=== PATIENT | male | born 1990 | race Caucasian/White ===

== ENCOUNTER 2021-05-19 09:44 | Inpatient (IN) | payer MEDICAID ==
[~2021-05-19] VITALS: Ht 180.3 cm; Wt 85.5 kg
[2021-05-19 10:52] LABS: COVID AG,FIA SOURCE NASAL SWAB
[2021-05-19 10:53] LABS: BASOPHILS % (AUTO) 1.3 % (0.0-2.0); EOSINOPHILS % (AUTO) 0.5 % (1.0-6.0); HEMATOCRIT 38.9 % (41-53); LYMPHOCYTES % (AUTO) 20.3 % (22.0-44.0); MEAN CORPUSCULAR HEMOGLOBIN 27.2 pg (26.0-34.0); MEAN CORPUSCULAR HGB CONC 33.5 G/dL (31.0-37.0); MEAN CORPUSCULAR VOLUME 81 fL (80-100); MONOCYTES # (AUTO) 0.9 K/uL (0.1-1.0); MONOCYTES % (AUTO) 9.5 % (2.0-9.0); NEUTROPHILS # (AUTO) 6.7 K/uL (1.8-7.7); NEUTROPHILS % (AUTO) 68.4 % (40.0-70.0); PLATELET COUNT (AUTO) 320 K/uL (150-450); RED BLOOD CELL COUNT(AUTO) 4.77 MIL/uL (4.50-5.90); RED CELL DISTRIBUTION WIDTH 13.4 % (11.5-14.5)
[2021-05-19 11:01] LABS: AMPHET/METH SCREEN,URINE POSITIVE (NEGATIVE); BARBITURATE SCREEN, URINE NEGATIVE (NEGATIVE); BENZODIAZEPINES SCREEN,URINE NEGATIVE (NEGATIVE); CANNABINOID SCREEN,URINE NEGATIVE (NEGATIVE); COCAINE SCREEN,URINE NEGATIVE (NEGATIVE); METHADONE SCREEN, URINE NEGATIVE (NEGATIVE); OPIATE SCREEN,URINE NEGATIVE (NEGATIVE); PHENCYCLIDINE SCREEN,URINE NEGATIVE (NEGATIVE)
[2021-05-19 11:03] LABS: ANION GAP 14 mmol/L (8-16); CALCIUM, TOTAL 9.6 mg/dL (8.8-10.5); CARBON DIOXIDE 23 mmol/L (22-29); CHLORIDE 101 mmol/L (98-107); CREATININE 1.21 mg/dL (0.60-1.30); GLOMERULAR FILTR. RATE CALC > 60 mL/min (>60); GLUCOSE,RANDOM 97 mg/dL (70-110); POTASSIUM 3.7 mmol/L (3.5-5.1); SODIUM SERUM 138 mmol/L (136-145); UREA NITROGEN, BLOOD 21 mg/dL (7-18)
[2021-05-19 11:09] LABS: ALANINE AMINOTRANSFERASE 40 U/L (12-78); ALBUMIN 4.6 g/dL (3.4-5.0); ALKALINE PHOSPHATASE 60 U/L (46-116); ASPARTATE AMINOTRANSFERASE 51 U/L (15-37); TOTAL PROTEIN, SERUM 8.7 g/dL (6.4-8.2)
[2021-05-19] MEDS ORDERED: LORazepam 1 MG TABLET PO ONE (13:15)
[2021-05-19] MEDS ORDERED: OLANZapine 5 MG TABLET PO ONE (15:15)
[2021-05-19] MEDS ORDERED: ZOLPIDEM TARTRATE 10 MG TABLET PO PRN (17:15)
[2021-05-19] MEDS ORDERED: HALOPERIDOL 5 MG TABLET PO PRN (17:15)
[2021-05-19] MEDS ORDERED: LORazepam 2 MG TABLET PO PRN (17:15)
[2021-05-19 19:53] VITALS: BP 121/54
[2021-05-19 20:37] VITALS: BP 121/54
[2021-05-19] MEDS ORDERED: PNEUMOCOCCAL VACCINE POLYVALENT 0.5 ML VIAL [PPSV23] IM. ONE (20:45)
[2021-05-19] MEDS ORDERED: ALBUTEROL SULFATE HFA 90 MCG/PUFF 8 GM INHALER IH PRN (22:45)
[2021-05-20 02:30] VITALS: BP 137/75
[2021-05-20] MEDS ORDERED: GuaiFENesin/D-METHORPHAN [SUGAR-FREE] 200-20MG/10 ML SYRUP UDCUP PO PRN (07:00)
[2021-05-20] MEDS ORDERED: NICOTINE 14 MG/24 HOUR PATCH TD PRN (07:00)
[2021-05-20] MEDS ORDERED: ACETAMINOPHEN 325 MG TABLET PO PRN (07:00)
[2021-05-20] MEDS ORDERED: ONDANSETRON HCL 4 MG TABLET PO PRN (07:00)
[2021-05-20] MEDS ORDERED: MAG HYDROX/AL HYDROX/SIMETH ES 30 ML SUSPENSION UDCUP PO PRN (07:00)
[2021-05-20] MEDS ORDERED: DOCUSATE SODIUM 100 MG CAPSULE PO PRN (07:00)
[2021-05-20] MEDS ORDERED: CloNIDine HCL 0.1 MG TABLET PO PRN (07:00)
[2021-05-20] MEDS ORDERED: ALBUTEROL SULFATE HFA 90 MCG/PUFF 8 GM INHALER IH PRN (07:00)
[2021-05-20] MEDS ORDERED: IBUPROFEN 400 MG TABLET PO PRN (07:00)
[2021-05-20] MEDS ORDERED: PETROLATUM,WHITE 28 GM JELLY TP PRN (07:00)
[2021-05-20] MEDS ORDERED: LOPERAMIDE HCL 2 MG CAPSULE PO PRN (07:00)
[2021-05-20] MEDS ORDERED: MAGNESIUM HYDROXIDE SUSPENSION 30 ML UDCUP PO PRN (07:00)
[2021-05-20 08:42] VITALS: BP 118/77
[2021-05-20] MEDS: HydrOXYzine PAMOATE 50 MG CAPSULE PO SCH ×2 (12:41→16:21)
[2021-05-20] MEDS: OLANZapine 5 MG TABLET PO SCH ×2 (12:41→20:36)
[2021-05-20 16:00] VITALS: BP 101/69
[2021-05-20 16:20] VITALS: BP 101/69
[2021-05-20] MEDS: GABAPENTIN 300 MG CAPSULE PO SCH (16:21)
[2021-05-21 08:51] VITALS: BP 122/72
[2021-05-21] MEDS: HydrOXYzine PAMOATE 50 MG CAPSULE PO SCH ×3 (09:31→16:05)
[2021-05-21] MEDS: OLANZapine 5 MG TABLET PO SCH ×2 (09:31→20:20)
[2021-05-21] MEDS: GABAPENTIN 300 MG CAPSULE PO SCH ×2 (09:31→16:05)
[2021-05-21 17:08] VITALS: BP 140/80
[2021-05-22 08:23] VITALS: BP 119/69
[2021-05-22] MEDS: HydrOXYzine PAMOATE 50 MG CAPSULE PO SCH ×3 (09:13→16:56)
[2021-05-22] MEDS: OLANZapine 5 MG TABLET PO SCH ×2 (09:13→20:41)
[2021-05-22] MEDS: GABAPENTIN 300 MG CAPSULE PO SCH ×2 (09:13→16:56)
[2021-05-22 16:22] VITALS: BP 114/69
[2021-05-23] MEDS: GABAPENTIN 300 MG CAPSULE PO SCH ×2 (08:19→16:18)
[2021-05-23] MEDS: HydrOXYzine PAMOATE 50 MG CAPSULE PO SCH ×3 (08:19→16:18)
[2021-05-23] MEDS: OLANZapine 5 MG TABLET PO SCH ×2 (08:19→20:04)
[2021-05-23 08:48] VITALS: BP 106/60
[2021-05-23 16:25] VITALS: BP 121/75
[2021-05-24] MEDS: HydrOXYzine PAMOATE 50 MG CAPSULE PO SCH ×3 (08:27→16:04)
[2021-05-24] MEDS: GABAPENTIN 300 MG CAPSULE PO SCH ×2 (08:27→16:04)
[2021-05-24] MEDS: OLANZapine 5 MG TABLET PO SCH ×2 (08:27→20:27)
[2021-05-24 08:54] VITALS: BP 100/53
[2021-05-24 16:51] VITALS: BP 121/66
[2021-05-25 09:20] VITALS: BP 106/55
[2021-05-25] MEDS: OLANZapine 5 MG TABLET PO SCH ×2 (09:28→20:39)
[2021-05-25] MEDS: GABAPENTIN 300 MG CAPSULE PO SCH ×2 (09:28→16:49)
[2021-05-25] MEDS: HydrOXYzine PAMOATE 50 MG CAPSULE PO SCH ×3 (09:29→16:49)
[2021-05-25 16:46] VITALS: BP 109/80
[2021-05-25 20:16] LABS: COVID AG,FIA SOURCE NASAL SWAB
[2021-05-26 08:38] VITALS: BP 107/61
[2021-05-26 09:13] LABS: FERRITIN 64 ng/mL (26-388); LACTATE DEHYDROGENASE 120 U/L (85-227)
[2021-05-26 09:16] LABS: C-REACTIVE PROTEIN QUANT < 0.05 mg/dL (0.00-0.30)
[2021-05-26] MEDS: GABAPENTIN 300 MG CAPSULE PO SCH ×2 (09:43→16:02)
[2021-05-26] MEDS: HydrOXYzine PAMOATE 50 MG CAPSULE PO SCH ×3 (09:43→16:02)
[2021-05-26] MEDS: OLANZapine 5 MG TABLET PO SCH ×2 (09:43→20:03)
[2021-05-26] MEDS: MULTIVITAMINS, THERAPEUTIC TABLET PO SCH (09:43)
[2021-05-26 16:18] VITALS: BP 111/79
[2021-05-27 07:36] LABS: FERRITIN 58 ng/mL (26-388); LACTATE DEHYDROGENASE 139 U/L (85-227)
[2021-05-27 07:40] LABS: C-REACTIVE PROTEIN QUANT < 0.05 mg/dL (0.00-0.30)
[2021-05-27 08:22] VITALS: BP 113/62
[2021-05-27] MEDS: GABAPENTIN 300 MG CAPSULE PO SCH ×2 (09:00→17:00)
[2021-05-27] MEDS: OLANZapine 5 MG TABLET PO SCH ×2 (09:01→20:52)
[2021-05-27] MEDS: HydrOXYzine PAMOATE 50 MG CAPSULE PO SCH ×3 (09:01→17:00)
[2021-05-27] MEDS: MULTIVITAMINS, THERAPEUTIC TABLET PO SCH (09:01)
[2021-05-27 16:00] VITALS: BP 111/69
[2021-05-28 07:04] LABS: FERRITIN 62 ng/mL (26-388); LACTATE DEHYDROGENASE 130 U/L (85-227)
[2021-05-28 07:05] LABS: C-REACTIVE PROTEIN QUANT < 0.05 mg/dL (0.00-0.30)
[2021-05-28] MEDS: MULTIVITAMINS, THERAPEUTIC TABLET PO SCH (08:54)
[2021-05-28] MEDS: GABAPENTIN 300 MG CAPSULE PO SCH (08:54)
[2021-05-28] MEDS: HydrOXYzine PAMOATE 50 MG CAPSULE PO SCH (08:54)
[2021-05-28] MEDS: OLANZapine 5 MG TABLET PO SCH (08:56)
[2021-05-28] MEDS ORDERED: HYDR50CA7 PO (09:50)
[2021-05-28] MEDS ORDERED: OLAN5TAB52 PO (09:50)
== END 2021-05-28 10:20 | disposition home or self-care (01) | DRG 753 ==
LOC: EMS 09:52 → 3EI 18:08
PROVIDERS: ADMIT Psychiatry & Neurology Child & Adolescent Psychiatry; ATTEND Psychiatry & Neurology Child & Adolescent Psychiatry
DX: F31.4 Bipolar disorder, current episode depressed, severe, without psychotic features (principal); R45.851 Suicidal ideations; Z91.19 Patient's noncompliance with other medical treatment and regimen; D64.9 Anemia, unspecified; F15.10 Other stimulant abuse, uncomplicated; F41.9 Anxiety disorder, unspecified; Z20.822 Contact with and (suspected) exposure to COVID-19; J45.909 Unspecified asthma, uncomplicated; F17.210 Nicotine dependence, cigarettes, uncomplicated; Z59.00 Homelessness unspecified
CPT/HCPCS: 80053; 82728; 83615; 85025; 85379; 86140; 99285; G0480; J3535

== ENCOUNTER 2021-09-08 09:35 | Inpatient (IN) | payer MEDICAID ==
[~2021-09-08] VITALS: Ht 180.3 cm; Wt 100.9 kg
[~2021-09-08 09:35] MED LIST: HYDR50CA7 PO; OLAN5TAB52 PO
[2021-09-08 11:17] LABS: BASOPHILS % (AUTO) 0.3 % (0.0-2.0); EOSINOPHILS % (AUTO) 0.6 % (1.0-6.0); HEMATOCRIT 41.3 % (41-53); HEMOGLOBIN 13.9 g/dL (13.5-17.5); LYMPHOCYTES % (AUTO) 14.1 % (22.0-44.0); MEAN CORPUSCULAR HEMOGLOBIN 27.5 pg (26.0-34.0); MEAN CORPUSCULAR HGB CONC 33.5 G/dL (31.0-37.0); MEAN CORPUSCULAR VOLUME 82 fL (80-100); MONOCYTES # (AUTO) 0.9 K/uL (0.1-1.0); NEUTROPHILS # (AUTO) 11.3 K/uL (1.8-7.7); PLATELET COUNT (AUTO) 270 K/uL (150-450); RED BLOOD CELL COUNT(AUTO) 5.04 MIL/uL (4.50-5.90); RED CELL DISTRIBUTION WIDTH 13.5 % (11.5-14.5)
[2021-09-08 11:37] LABS: ANION GAP 13 mmol/L (8-16); CALCIUM, TOTAL 9.1 mg/dL (8.8-10.5); CARBON DIOXIDE 22 mmol/L (22-29); CHLORIDE 101 mmol/L (98-107); CREATININE 1.22 mg/dL (0.60-1.30); GLUCOSE,RANDOM 91 mg/dL (70-110); POTASSIUM 3.8 mmol/L (3.5-5.1); SODIUM SERUM 136 mmol/L (136-145); UREA NITROGEN, BLOOD 25 mg/dL (7-18)
[2021-09-08 11:39] LABS: GLOMERULAR FILTR. RATE CALC > 60 mL/min (>60)
[2021-09-08 11:43] LABS: ALANINE AMINOTRANSFERASE 40 U/L (12-78); ALBUMIN 4.2 g/dL (3.4-5.0); ALKALINE PHOSPHATASE 70 U/L (46-116); ASPARTATE AMINOTRANSFERASE 46 U/L (15-37); BILIRUBIN,TOTAL 1.6 mg/dL (0.1-1.0)
[2021-09-08] MEDS ORDERED: LORazepam 2 MG TABLET PO PRN (12:15)
[2021-09-08] MEDS ORDERED: ZOLPIDEM TARTRATE 10 MG TABLET PO PRN (12:15)
[2021-09-08] MEDS ORDERED: OLANZapine 5 MG RAPDIS TABLET PO PRN (12:15)
[2021-09-08 12:30] LABS: COVID AG,FIA SOURCE NASOPHARYNGEAL
[2021-09-08 22:04] VITALS: BP 129/79
[2021-09-09] MEDS ORDERED: ACETAMINOPHEN 325 MG TABLET PO PRN (07:15)
[2021-09-09] MEDS ORDERED: ONDANSETRON HCL 4 MG TABLET PO PRN (07:15)
[2021-09-09] MEDS ORDERED: LOPERAMIDE HCL 2 MG CAPSULE PO PRN (07:15)
[2021-09-09] MEDS ORDERED: IBUPROFEN 400 MG TABLET PO PRN (07:15)
[2021-09-09] MEDS ORDERED: DOCUSATE SODIUM 100 MG CAPSULE PO PRN (07:15)
[2021-09-09] MEDS ORDERED: CloNIDine HCL 0.1 MG TABLET PO PRN (07:15)
[2021-09-09] MEDS ORDERED: MAGNESIUM HYDROXIDE SUSPENSION 30 ML UDCUP PO PRN (07:15)
[2021-09-09] MEDS ORDERED: GuaiFENesin/D-METHORPHAN [SUGAR-FREE] 200-20MG/10 ML SYRUP UDCUP PO PRN (07:15)
[2021-09-09] MEDS ORDERED: PETROLATUM,WHITE 28 GM JELLY TP PRN (07:15)
[2021-09-09] MEDS ORDERED: MAG HYDROX/AL HYDROX/SIMETH ES 30 ML SUSPENSION UDCUP PO PRN (07:15)
[2021-09-09 08:27] VITALS: BP 100/56
[2021-09-09] MEDS: HydrOXYzine PAMOATE 50 MG CAPSULE PO SCH ×2 (13:25→17:00)
[2021-09-09] MEDS: GABAPENTIN 300 MG CAPSULE PO SCH (17:00)
[2021-09-09] MEDS: OLANZapine 5 MG TABLET PO SCH (17:00)
[2021-09-09 20:39] VITALS: BP 136/82
[2021-09-10 08:14] VITALS: BP 128/66
[2021-09-10] MEDS: HydrOXYzine PAMOATE 50 MG CAPSULE PO SCH ×3 (08:22→16:50)
[2021-09-10] MEDS: GABAPENTIN 300 MG CAPSULE PO SCH ×2 (08:22→16:50)
[2021-09-10] MEDS: OLANZapine 5 MG TABLET PO SCH ×2 (08:22→16:50)
[2021-09-10 20:21] VITALS: BP 102/65
[2021-09-11] MEDS: OLANZapine 5 MG TABLET PO SCH ×2 (08:21→16:21)
[2021-09-11] MEDS: GABAPENTIN 300 MG CAPSULE PO SCH ×2 (08:21→16:21)
[2021-09-11] MEDS: HydrOXYzine PAMOATE 50 MG CAPSULE PO SCH ×3 (08:21→16:21)
[2021-09-11 08:47] VITALS: BP 116/58
[2021-09-11 20:21] VITALS: BP 118/67
[2021-09-12] MEDS: OLANZapine 5 MG TABLET PO SCH ×2 (08:32→16:29)
[2021-09-12] MEDS: GABAPENTIN 300 MG CAPSULE PO SCH ×2 (08:32→16:29)
[2021-09-12] MEDS: HydrOXYzine PAMOATE 50 MG CAPSULE PO SCH ×3 (08:32→16:29)
[2021-09-12 08:48] VITALS: BP 106/66
[2021-09-12 20:21] VITALS: BP 133/69
[2021-09-13 08:19] VITALS: BP 113/69
[2021-09-13] MEDS: HydrOXYzine PAMOATE 50 MG CAPSULE PO SCH ×3 (09:13→16:59)
[2021-09-13] MEDS: GABAPENTIN 300 MG CAPSULE PO SCH ×2 (09:13→16:59)
[2021-09-13] MEDS: OLANZapine 5 MG TABLET PO SCH ×2 (09:13→16:59)
[2021-09-13] MEDS: NICOTINE 14 MG/24 HOUR PATCH TD PRN (17:32)
[2021-09-13 20:23] VITALS: BP 106/69
[2021-09-14 08:46] VITALS: BP 112/62
[2021-09-14] MEDS: HydrOXYzine PAMOATE 50 MG CAPSULE PO SCH ×3 (09:06→16:43)
[2021-09-14] MEDS: GABAPENTIN 300 MG CAPSULE PO SCH ×2 (09:06→16:42)
[2021-09-14] MEDS: OLANZapine 5 MG TABLET PO SCH ×2 (09:06→16:43)
[2021-09-14 20:31] VITALS: BP 121/70
[2021-09-15 08:51] VITALS: BP 112/69
[2021-09-15] MEDS: OLANZapine 5 MG TABLET PO SCH ×2 (09:24→16:07)
[2021-09-15] MEDS: GABAPENTIN 300 MG CAPSULE PO SCH ×2 (09:24→16:07)
[2021-09-15] MEDS: HydrOXYzine PAMOATE 50 MG CAPSULE PO SCH ×3 (09:24→16:07)
[2021-09-15] MEDS: NICOTINE 14 MG/24 HOUR PATCH TD PRN (10:42)
[2021-09-15] MEDS ORDERED: NICOTINE POLACRILEX 2 MG LOZENGE PO PRN (17:45)
[2021-09-15 20:28] VITALS: BP 116/67
[2021-09-15] MEDS: TraZODone HCL 100 MG TABLET PO PRN (21:37)
[2021-09-16] MEDS: HydrOXYzine PAMOATE 50 MG CAPSULE PO SCH ×3 (08:06→16:44)
[2021-09-16] MEDS: GABAPENTIN 300 MG CAPSULE PO SCH ×2 (08:06→16:44)
[2021-09-16] MEDS: OLANZapine 5 MG TABLET PO SCH ×2 (08:06→16:44)
[2021-09-16 08:36] VITALS: BP 110/68
[2021-09-16] MEDS: NICOTINE 14 MG/24 HOUR PATCH TD PRN (13:04)
[2021-09-16] MEDS: ALBUTEROL SULFATE HFA 90 MCG/PUFF 8 GM INHALER IH PRN (18:35)
[2021-09-16 20:17] VITALS: BP 99/61
[2021-09-16] MEDS ORDERED: LORATADINE 10 MG TABLET PO PRN (21:15)
[2021-09-16] MEDS: TraZODone HCL 100 MG TABLET PO PRN (21:48)
[2021-09-17] MEDS: GABAPENTIN 300 MG CAPSULE PO SCH ×2 (08:35→16:36)
[2021-09-17] MEDS: OLANZapine 5 MG TABLET PO SCH ×2 (08:35→16:36)
[2021-09-17] MEDS: HydrOXYzine PAMOATE 50 MG CAPSULE PO SCH ×3 (08:35→16:36)
[2021-09-17 08:50] VITALS: BP 115/64
[2021-09-17 09:32] LABS: GLUCOMETER DEV NAME(LOC) POC.BV
[2021-09-17] MEDS: NICOTINE 14 MG/24 HOUR PATCH TD PRN (10:04)
[2021-09-17] MEDS: ALBUTEROL SULFATE HFA 90 MCG/PUFF 8 GM INHALER IH PRN (10:07)
[2021-09-17] MEDS: TraZODone HCL 100 MG TABLET PO PRN (20:20)
[2021-09-17 20:29] VITALS: BP 115/74
[2021-09-18 08:34] VITALS: BP 112/62
[2021-09-18] MEDS: HydrOXYzine PAMOATE 50 MG CAPSULE PO SCH ×3 (08:39→16:22)
[2021-09-18] MEDS: GABAPENTIN 300 MG CAPSULE PO SCH ×2 (08:39→16:22)
[2021-09-18] MEDS: OLANZapine 5 MG TABLET PO SCH ×2 (08:39→16:22)
[2021-09-18] MEDS: NICOTINE 14 MG/24 HOUR PATCH TD PRN (10:31)
[2021-09-18 20:15] VITALS: BP 139/78
[2021-09-18] MEDS: TraZODone HCL 100 MG TABLET PO PRN (20:55)
[2021-09-19 08:37] VITALS: BP 89/56
[2021-09-19] MEDS: GABAPENTIN 300 MG CAPSULE PO SCH ×2 (09:49→16:18)
[2021-09-19] MEDS: HydrOXYzine PAMOATE 50 MG CAPSULE PO SCH ×3 (09:49→16:18)
[2021-09-19] MEDS: OLANZapine 5 MG TABLET PO SCH ×2 (09:49→16:18)
[2021-09-19] MEDS: NICOTINE 14 MG/24 HOUR PATCH TD PRN (11:46)
[2021-09-19 20:10] VITALS: BP 118/63
[2021-09-19] MEDS: TraZODone HCL 100 MG TABLET PO PRN (21:13)
[2021-09-20] MEDS: GABAPENTIN 300 MG CAPSULE PO SCH ×2 (08:18→16:41)
[2021-09-20] MEDS: OLANZapine 5 MG TABLET PO SCH ×2 (08:18→16:41)
[2021-09-20] MEDS: HydrOXYzine PAMOATE 50 MG CAPSULE PO SCH ×3 (08:18→16:41)
[2021-09-20 08:25] VITALS: BP 118/71
[2021-09-20] MEDS: NICOTINE 14 MG/24 HOUR PATCH TD PRN (11:01)
[2021-09-20 20:19] VITALS: BP 131/74
[2021-09-20] MEDS: TraZODone HCL 100 MG TABLET PO PRN (20:48)
[2021-09-21 08:44] VITALS: BP 122/64
[2021-09-21] MEDS: HydrOXYzine PAMOATE 50 MG CAPSULE PO SCH ×3 (09:27→16:19)
[2021-09-21] MEDS: GABAPENTIN 300 MG CAPSULE PO SCH ×2 (09:27→16:19)
[2021-09-21] MEDS: OLANZapine 5 MG TABLET PO SCH ×2 (09:27→16:19)
[2021-09-21] MEDS: NICOTINE 14 MG/24 HOUR PATCH TD PRN (10:59)
[2021-09-21 20:31] VITALS: BP 109/67
[2021-09-21] MEDS: TraZODone HCL 100 MG TABLET PO PRN (21:16)
[2021-09-22 08:12] VITALS: BP 106/61
[2021-09-22] MEDS: GABAPENTIN 300 MG CAPSULE PO SCH ×2 (09:30→16:33)
[2021-09-22] MEDS: OLANZapine 5 MG TABLET PO SCH (09:31)
[2021-09-22] MEDS: HydrOXYzine PAMOATE 50 MG CAPSULE PO SCH ×3 (09:31→16:33)
[2021-09-22] MEDS: NICOTINE 14 MG/24 HOUR PATCH TD PRN (10:55)
[2021-09-22] MEDS: ALBUTEROL SULFATE HFA 90 MCG/PUFF 8 GM INHALER IH PRN (18:45)
[2021-09-22 20:19] VITALS: BP 122/70
[2021-09-22] MEDS: LURASIDONE HCL 40 MG TABLET PO SCH (20:45)
[2021-09-22] MEDS: TraZODone HCL 100 MG TABLET PO PRN (21:17)
[2021-09-23 08:17] VITALS: BP 115/62
[2021-09-23] MEDS: HydrOXYzine PAMOATE 50 MG CAPSULE PO SCH ×3 (08:39→16:32)
[2021-09-23] MEDS: GABAPENTIN 300 MG CAPSULE PO SCH ×2 (08:39→16:33)
[2021-09-23] MEDS: NICOTINE 14 MG/24 HOUR PATCH TD PRN (12:31)
[2021-09-23] MEDS: ALBUTEROL SULFATE HFA 90 MCG/PUFF 8 GM INHALER IH PRN (16:32)
[2021-09-23 20:27] VITALS: BP 133/69
[2021-09-23] MEDS: LURASIDONE HCL 40 MG TABLET PO SCH (21:24)
[2021-09-23] MEDS: TraZODone HCL 100 MG TABLET PO PRN (21:24)
[2021-09-24] MEDS: HydrOXYzine PAMOATE 50 MG CAPSULE PO SCH ×3 (08:27→16:35)
[2021-09-24] MEDS: GABAPENTIN 300 MG CAPSULE PO SCH ×2 (08:27→16:35)
[2021-09-24 08:38] VITALS: BP 119/66
[2021-09-24 10:06] LABS: GLUCOMETER DEV NAME(LOC) POC.BV
[2021-09-24] MEDS: NICOTINE 14 MG/24 HOUR PATCH TD PRN (12:24)
[2021-09-24] MEDS ORDERED: GABA-1181 PO (18:09)
[2021-09-24] MEDS ORDERED: HYDR50CA7 PO (18:09)
[2021-09-24] MEDS ORDERED: LURA40TA2 PO (18:09)
[2021-09-24 20:17] VITALS: BP 128/79
[2021-09-24] MEDS: LURASIDONE HCL 40 MG TABLET PO SCH (20:43)
[2021-09-24] MEDS: TraZODone HCL 100 MG TABLET PO PRN (21:15)
== END 2021-09-25 07:45 | disposition home or self-care (01) | DRG 753 ==
LOC: EMS 09:35 → B2S 16:25 → B3A 19:54 → B2S 09-11 14:50
PROVIDERS: ADMIT Psychiatry & Neurology Child & Adolescent Psychiatry; ATTEND Psychiatry & Neurology Child & Adolescent Psychiatry
DX: F31.5 Bipolar disorder, current episode depressed, severe, with psychotic features (principal); R45.851 Suicidal ideations; D72.829 Elevated white blood cell count, unspecified; F10.10 Alcohol abuse, uncomplicated; F41.9 Anxiety disorder, unspecified; J45.909 Unspecified asthma, uncomplicated; Z20.822 Contact with and (suspected) exposure to COVID-19; Z59.00 Homelessness unspecified; Z87.891 Personal history of nicotine dependence; Z71.51 Drug abuse counseling and surveillance of drug abuser
CPT/HCPCS: 80053; 85025; 99285; G0480; J3535